=== PATIENT | female | born 1955 | race Caucasian/White ===

== ENCOUNTER 2021-11-23 15:52 | Emergency (ER) | payer OTHER ==
[~2021-11-23] VITALS: Ht 167.6 cm; Wt 84.4 kg
[~2021-11-23 15:52] MED LIST: INSULIN; SYNTHROID200 MCG; SYNTHROID88 MCG
[2021-11-23] MEDS ORDERED: GLIPIZIDE XL10 MG PO (16:18)
[2021-11-23] MEDS ORDERED: SYNTHROID175 MCG PO (16:18)
[2021-11-23] MEDS ORDERED: ATORVASTATIN CA40 MG PO (16:18)
[2021-11-23] MEDS ORDERED: JANUMET XR 50-1 EAC1 PO (16:18)
[2021-11-23] MEDS ORDERED: ALENDRONATE SOD70 MG PO (16:19)
[2021-11-23] MEDS ORDERED: LANTUS SOL100 UNIT/1 SUBCUTANEO (16:19)
[2021-11-23] MEDS ORDERED: HORIZANT300 MG PO (16:19)
== END 2021-11-23 19:13 | disposition home or self-care (01) ==
LOC: ER 15:52
DX: U07.1 COVID-19 (principal); R53.81 Other malaise; R06.02 Shortness of breath; R53.1 Weakness; E11.9 Type 2 diabetes mellitus without complications; Z79.4 Long term (current) use of insulin; Z79.84 Long term (current) use of oral hypoglycemic drugs; I10 Essential (primary) hypertension; Z88.6 Allergy status to analgesic agent